=== PATIENT | male | born 2000 | race Caucasian/White ===

== ENCOUNTER 2022-06-18 14:49 | Emergency (ER) | payer OTHER, BC ==
[2022-06-18] MEDS ORDERED: Diphtheria,Pertussis(Acell),Tetanus Vaccine 0.5 ML Syringe IM ONE (15:29)
[2022-06-18] MEDS ORDERED: Lidocaine 1% 5 ML VIAL INJECT ONE (15:29)
[2022-06-18] MEDS ORDERED: Bacitracin Oint 1 GM U/D Packet TOP ONE (16:08)
== END 2022-06-18 16:20 | disposition home or self-care (01) ==
LOC: LL.ED 14:49
DX: S61.412A Laceration without foreign body of left hand, initial encounter (principal); Z88.1 Allergy status to other antibiotic agents; W26.0XXA Contact with knife, initial encounter
CPT/HCPCS: 12002; 90471; 90715; 99282; 99283

== ENCOUNTER 2022-12-19 13:50 | Emergency (ER) | payer BC ==
[2022-12-19] MEDS ORDERED: Sodium Chloride 0.9% 10 ML Syringe FLUSH PRN (14:00)
[2022-12-19] MEDS ORDERED: Sodium Chloride 0.9% 1,000 ML IV ONE (14:08)
[2022-12-19 14:27] LABS: BASOPHILS ABSOLUTE AUTO 0.02 K/uL (0.00-0.20); BASOPHILS PERCENT AUTO 0.3 % (0.0-2.0); EOSINOPHILS ABSOLUTE AUTO 0.04 K/uL (0.00-0.50); EOSINOPHILS PERCENT AUTO 0.7 % (0.0-5.0); HEMOGLOBIN 16.1 g/dL (13.1-16.8); LYMPHOCYTES ABSOLUTE AUTO 1.36 K/uL (0.50-3.50); LYMPHOCYTES PERCENT AUTO 22.4 % (10.0-50.0); MEAN CORPUSCULAR HEMOGLOBIN 29.1 pg (28.2-33.3); MEAN CORPUSCULAR VOLUME 83.2 fL (84.0-98.0); MONOCYTES ABSOLUTE AUTO 0.48 K/uL (0.00-1.00); MONOCYTES PERCENT AUTO 7.9 % (2.0-14.0); NEUTROPHILS ABSOLUTE AUTO 4.18 K/uL (1.40-7.00); NEUTROPHILS PERCENT AUTO 68.7 % (45.0-80.0); PLATELET COUNT,PLT 214 K/uL (150-350); RED BLOOD CELL COUNT 5.53 M/uL (4.33-5.41); RED CELL DISTRIBUTION WIDTH 12.6 % (11.2-14.1); WHITE BLOOD CELL COUNT,WBC 6.1 K/uL (4.0-10.2)
[2022-12-19] MEDS ORDERED: LORazepam 2 MG/ML SDV IM ONE (14:35)
[2022-12-19] MEDS ORDERED: Ondansetron 4 MG/2 ML SDV IVPUSH PRN (14:35)
[2022-12-19] MEDS ORDERED: LORazepam 2 MG/ML SDV IVPUSH ONE (14:38)
[2022-12-19 14:44] LABS: ALANINE AMINOTRANSFERASE,ALT 28 U/L (12-78); ALBUMIN 4.7 g/dL (3.4-5.0); ALKALINE PHOSPHATASE 98 IU/L (46-116); ANION GAP 13.8 meq/L (7-15); ASPARTATE AMNIOTRANSFERASE,AST 17 U/L (15-37); BILIRUBIN TOTAL 2.4 mg/dL (0.2-1.0); BLOOD UREA NITROGEN,BUN 17 mg/dL (7-18); CALCIUM 9.6 mg/dL (8.5-10.1); CARBON DIOXIDE,CO2 25.2 mmol/L (21.0-32.0); CHLORIDE,CL 101 mmol/L (98-107); CREATINE KINASE,CK 75 U/L (26-308); CREATININE 1.14 mg/dL (0.51-1.17); GLUCOSE RANDOM 99 mg/dL (70-99); POTASSIUM,K 3.7 mmol/L (3.5-5.1); SODIUM,NA 140 mmol/L (136-145)
[2022-12-19 14:50] LABS: ESTIMATED GFR 93 mL/min (>=60)
[2022-12-19 15:24] LABS: CORONAVIRUS COVID-19 NAA NEGATIVE (NEGATIVE); INFLUENZA A NAA NEGATIVE (NEGATIVE); INFLUENZA B NAA NEGATIVE (NEGATIVE); RESPIRATORY SYNCYTIAL VIR NAA NEGATIVE (NEGATIVE)
== END 2022-12-19 15:45 | disposition home or self-care (01) ==
LOC: LL.ED 13:50
DX: E86.0 Dehydration (principal); F41.9 Anxiety disorder, unspecified; Z88.1 Allergy status to other antibiotic agents; Z20.822 Contact with and (suspected) exposure to COVID-19
CPT/HCPCS: 0241U; 36415; 71045; 80053; 82550; 84484; 85025; 93005; 93010; 96361; 96374; 99284; 99285-25; J2060; J7030